=== PATIENT | male | born 1970 | race Caucasian/White ===

== ENCOUNTER 2017-01-22 19:25 | Emergency (ER) | payer BC, OTHER ==
--- NOTE | 2017-01-22 19:28 | PDOC ---
History of Present Illness - General History Source: Patient Exam Limitations: No Limitations - History of Present Illness Initial Comments: 01/22/17 20:09 The patient is a 46 year old male, with no significant past medical history, who presents today with an abscess on the left lateral calf that has become larger and increasingly warm and inflamed since yesterday. The pain is a constant throbbing, 6/10 in severity, and radiates down the ankle and up to the knee. The patient visited an urgent care yesterday and was prescribed Keflex and Bactrim, which he took two doses. The patient notes that he works in [employer], but denies any recent trauma or injury to the leg. Denies fever, chills, nausea, vomiting. Denies insect bites. Denies chest pain, SOB. Denies numbness or tingling in the lower extremities. Allergies: none reported Social Hx: no tobacco use, no alcohol use, no recreational drug use. Review of systems General: No fevers or chills, no weakness, no weight loss HEENT: No change in vision. No sore throat,. No ear pain CardioVascular: No chest pain or shortness of breath Respiratory:No cough, or wheezing. Gastrointestinal: no nausea, vomiting, diarrhea or constipation, No rectal bleeding Genitourinary: No dysuria, hematuria, or frequency Musculoskeletal: No joint or muscle pain or swelling Neurologic: No headache, vertigo, dizziness or loss of consciousness Psychiatric: nor depression Skin: + abscess on the left lateral calvillo that is painful warm to touch.No rashes or easy bruising Endocrine: no increased thirst or abnormal weight change Allergic: no skin or latex allergy All other systems reviewed and normal Physical Exam GENERAL: The patient is awake, alert, and fully oriented, in no acute distress. HEAD: Normal with no signs of trauma. EYES: Pupils equal, round and reactive to light, extraocular movements intact, sclera anicteric, conjunctiva clear. EXTREMITIES: Normal range of motion. NEUROLOGICAL: Normal speech, normal gait. PSYCH: Normal mood, normal affect. SKIN: On the mid left calf there is an area of induration with tenderness and erythema. There is increased warmth and erythema extending up the leg to approximately the popliteal fossa. There is no palpable collection. Neurovascular is intact. No rashes noted <Christy Lee - Last Filed: 01/22/17 20:08> - General History Source: Patient Exam Limitations: No Limitations - History of Present Illness Initial Comments: 01/22/17 21:02 A portion of this note was documented by scribe services under my direction. I have reviewed the details of the note, within reason, and agree with the documentation. The case summary and management plan written by me. Medical decision making This is a 46-year-old male who comes in complaining of left lower extremity pain swelling and infection. Patient had a small area of discomfort 1 days ago and was seen in an urgent care center and started on Keflex and Bactrim. She says that he's been taking them as prescribed. Patient said over the last 2 days his leg instead of getting better has gotten worse. Patient went back to the urgent care center and they told him to come to the emergency room. Patient has a area of induration that I put a needle into however there was no drainable collection so I did not incise and drain it. Patient was given a dose of IV vancomycin A CBC was sent and patient has a normal white count and no left shift. The rest of his lab work was otherwise unremarkable Patient is afebrile here in the emergency room I gave patient a local anesthetic prior to putting a needle into the area and the local anesthetic result patient's pain and discomfort. Discussed with discussed with patient the possibility of a observation admission just to make sure that his symptoms are getting better patient was adamant that he did not want to stay and said that he was refusing admission and would sign out if he needed to be admitted. Given patient's normal workup his resolution of his pain with only local anesthetic and the fact that he is afebrile here as well of having received a dose of IV antibiotics patient was discharged home without signing out AGAINST MEDICAL ADVICE but told to return if symptoms are not better in 48 hours or significantly worse in 24 hours. Patient was told to continue the antibiotics Keflex and Bactrim and to start hot soaks to the area 4 times a day. Patient has a primary care doctor he can follow-up with. \ <Kar Melissa I - Last Filed: 01/22/17 21:10> - General Chief Complaint: Wound Stated Complaint: LEFT LOWER LEG CELLULITIS Time Seen by Provider: 01/22/17 19:28 Past History <Christy Lee - Last Filed: 01/22/17 20:08> <Kar Melissa I - Last Filed: 01/22/17 21:10> - Past Medical History Allergies/Adverse Reactions: Allergies Allergy/AdvReac Type Severity Reaction Status Date / Time No Known Allergies Allergy Unverified 01/22/17 19:38 Home Medications: Ambulatory Orders Cephalexin [Keflex] 500 mg PO TID 01/22/17 Sulfamethoxazole/Trimethoprim [Bactrim Ds -] 1 tab PO BID 01/22/17 *Physical Exam - Vital Signs Last Vital Signs Temp Pulse Resp BP Pulse Ox 99.7 F H 87 16 128/79 99 01/22/17 19:26 01/22/17 19:26 01/22/17 19:26 01/22/17 19:26 01/22/17 19:26 <Christy Lee - Last Filed: 01/22/17 20:08> ED Treatment Course - LABORATORY CBC & Chemistry Diagram: 01/22/17 20:05 01/22/17 20:05 <Kar Melissa I - Last Filed: 01/22/17 21:10> *DC/Admit/Observation/Transfer - Attestations Scribe Attestion: 01/22/17 20:09 Documentation prepared by TIAGO Franco, acting as medical office coordinator for Kar Mleissa MD. <Christy Lee - Last Filed: 01/22/17 20:08> - Discharge Dispostion Admit: No <Kar Melissa I - Last Filed: 01/22/17 21:10> Diagnosis at time of Disposition: Cellulitis of left leg - Discharge Dispostion Condition at time of disposition: Stable - Patient Instructions Printed Discharge Instructions: DI for Cellulitis -- Adult Additional Instructions: Do hot soaks to the area as described by the physician do them for 20 minutes at a time 4 times a day for the next 3-4 days Continue the antibiotics as prescribed. Return to the emergency department immediately with ANY new, persistent or worsening symptoms. Continue any medications as previously prescribed by your physician. You should follow up with your primary doctor as soon as possible regarding today's emergency department visit. . Please make sure your doctor reviews the results of your emergency evaluation. Thank you for coming to the Emergency Department today for your care. It was a pleasure to see you today. Please note that your evaluation is INCOMPLETE until you follow-up with your doctor.
[2017-01-22 19:38] VITALS: BP 128/79; PULSE 87; TEMP 99.7; BMI 24.4
[2017-01-22 20:19] LABS: BASOPHIL 2.6 % (0-2.0); EOSINOPHIL 0.7 % (0-4.5); MCH 29.9 pg (25.7-33.7); MCHC 33.7 g/dl (32.0-35.9); MEAN CELL VOLUME 88.5 fl (80-96); MEAN PLT VOLUME 7.8 fl (7.5-11.1); NEUTROPHILS 75.6 % (42.8-82.8); PLATELET COUNT 295 K/MM3 (134-434); WHITE BLOOD COUNT 10.1 K/mm3 (4.0-10.8)
[2017-01-22] MEDS ORDERED: VANCOMYCIN 1,000 MG VIAL (RESTRICTED TO ID ONLY) ONE (20:20)
[2017-01-22] MEDS ORDERED: LIDOCAINE HCL 1%, 10 MG/ML (20ML VIAL) ONE (20:30)
[2017-01-22 20:33] LABS: ALBUMIN 4.2 g/dl (3.5-5.0); ALK PHOS 58 U/L (32-92); ANION GAP 9 (8-16); BILIRUBIN,TOTAL 1.4 mg/dl (0.2-1.0); CO2 24 mmol/L (22-28); CREATININE 1.3 mg/dl (0.6-1.3); GLUCOSE,RANDOM 102 mg/dl (74-106); SGOT/AST 21 U/L (10-42); SGPT/ALT 19 U/L (10-40); TOT PROT 6.9 g/dl (6.4-8.3)
[2017-01-22] MEDS ORDERED: VANCOMYCIN 1,000 MG in DEXTROSE 5%-WATER - 250 ML IVPB STA (20:41)
[2017-01-22] MEDS ORDERED: KETOROLAC TROMETHAMINE 30 MG/1 ML VIAL IVPUSH ONE (21:05)
[2017-01-22] MEDS ORDERED: KETOROLAC TROMETHAMINE 30 MG/1 ML VIAL ONE (21:09)
[2017-01-22] MEDS ORDERED: VANCOMYCIN 1,000 MG in DEXTROSE 5%-WATER - 250 ML IVPB SCH (22:00)
== END 2017-01-22 21:37 | disposition home or self-care (01) ==
LOC: FER 19:25
PROC: 3E03329 Introduction of Other Anti-infective into Peripheral Vein, Percutaneous Approach (ICD-10-PCS; principal; 2017-01-22)
PROC: 3E0333Z Introduction of Anti-inflammatory into Peripheral Vein, Percutaneous Approach (ICD-10-PCS; 2017-01-22)
DX: L03.116 Cellulitis of left lower limb (principal)
CPT/HCPCS: 36415; 80053; 85025; 87040; 99282-25

== ENCOUNTER 2017-01-24 18:51 | Emergency (ER) | payer BC ==
--- NOTE | 2017-01-24 18:59 | PDOC ---
History of Present Illness - General History Source: Patient Exam Limitations: No Limitations - History of Present Illness Initial Comments: 01/24/17 20:28 The patient is a 46 year old male, who was recently discharged on 01/22/17, 2 days ago, with an abscess on his left calf. He presents to the emergency department today for increased discomfort and pain. The patient states that the abscess remains painful and has not yet resolved. He states that he has been compliant with the antibiotics since being discharged. He denies fever, chills, nausea, vomiting. Denies abdominal pain. Denies chest pain, SOB. PAST MEDICAL HISTORY: no significant history PAST SURGICAL HISTORY: no significant history FAMILY HISTORY: no pertinent history SOCIAL HISTORY: Pt is employed. MEDICATIONS: reviewed ALLERGIES: As per nursing notes Review of systems General: No fevers or chills, no weakness, no weight loss HEENT: No change in vision. No sore throat, No ear pain CardioVascular: No chest pain or shortness of breath Respiratory:No cough, or wheezing. Gastrointestinal: no nausea, vomiting, diarrhea or constipation, No rectal bleeding Genitourinary: No dysuria, hematuria, or frequency Musculoskeletal: No joint or muscle pain or swelling Neurologic: No headache, vertigo, dizziness or loss of consciousness Psychiatric: nor depression Skin: +abscess on the left calf. No rashes or easy bruising Endocrine: no increased thirst or abnormal weight change Allergic: no skin or latex allergy All other systems reviewed and normal Physical Exam GENERAL: The patient is awake, alert, and fully oriented, in no acute distress. HEAD: Normal with no signs of trauma. EYES: Pupils equal, round and reactive to light, extraocular movements intact, sclera anicteric, conjunctiva clear. LEFT LOWER EXTREMITY: There is an area of swelling mid calf that is swollen and indurated 6cm x 6cm. There is tenderness on palpation of the area. There is a questionable palpable collection. There is some mild erythema to the area of swelling but it does not extend beyond the area of swelling. There is warmth associated with the area of swelling, but does not extend beyond the area of swelling. Neurovascular is intact. NEUROLOGICAL: Normal speech, normal gait. PSYCH: Normal mood, normal affect. SKIN: Warm, Dry, normal turgor, no rashes or lesions noted. <Christy Lee - Last Filed: 01/24/17 20:28> - General History Source: Patient Exam Limitations: No Limitations - History of Present Illness Initial Comments: A portion of this note was documented by scribe services under my direction. I have reviewed the details of the note, within reason, and agree with the documentation. The case summary and management plan written by me. 01/24/17 21:03 Ultrasound shows no DVT or no drainable collection. Assessment and plan: This is a 46-year-old male who comes in complaining of left leg pain and swelling. Patient was seen by me 2 days ago for a cellulitis of the leg secondary to a insect bite. The cellulitis had extended significantly beyond the area of bite and was tracking up the leg with some ascending lymphangitis. Patient had a workup including blood cultures and a CBC. The blood cultures at this point are showing no growth 3 days. The CBC was normal with a normal white count and no left shift. Patient denies any new fevers or new symptoms. Patient returns for reevaluation as he still is having some discomfort in the area of the probable bug bites. On my reexamination/reevaluation of the area the erythema is now limited to the area of the bug bite with some surrounding induration and erythema that is relatively mild. Patient still has 4 more days of Keflex and Bactrim. I did an ultrasound to rule out any DVT or drainable collection. The ultrasound was negative for DVT and there is no collection/abscess that was large enough to drain at this time. Patient will continue to take his medication and do hot soaks. Patient discharged home and was given Dr. Washington referral so that he will have some when he can follow-up with if anything changes 01/24/17 22:16 Referring Physician: Kar Melissa Patient Name: Hammad Young THIS IS A PRELIMINARY REPORT FROM [facility] EXAM: U/S, LOWER EXTREMITY VENOUS DOPPLER - Left INDICATION: Pain and swelling COMPARISON: NONE IMAGES: 22 EXAM DATE AND TIME: 2017-01-24 19:34:00.0 IMPRESSION: Negative for Left lower extremity DVT. THIS DOCUMENT HAS BEEN ELECTRONICALLY SIGNED Ed Christensen D.O. 01/24/2017 21:51 EST M.D. Please call [facility] [phone] with questions. End of Report Content Referring Physician: Kar Melissa Patient Name: Hammad Young THIS IS A PRELIMINARY REPORT FROM [facility] EXAM: Ultrasound soft tissues nonvascular, left IMAGES: 11 EXAM DATE AND TIME: 2017-01-24 20:26:14.0 REASON FOR EXAM: Left calf pain, swelling COMPARISON: None. FINDINGS: Small amorphous collection at palpable area in left calf, collection measures 1.2 x 0.4 x 0.6 cm. Collectioncentered at depth about 5 mm deep to skin surface. Differential includes phlegmon/early abscess, hematoma or muscle injury. THIS DOCUMENT HAS BEEN ELECTRONICALLY SIGNED Ed Christensen D.O. 01/24/2017 21:49 ABELARDO Jasso Please call [facility]reader [phone] with questions. End of Report Content <Kar Melissa I - Last Filed: 01/24/17 22:18> - General Chief Complaint: Revisit,Wound Recheck Stated Complaint: LEFT CALF WOUND Time Seen by Provider: 01/24/17 18:58 Past History <Christy Lee - Last Filed: 01/24/17 20:28> - Psycho/Social/Smoking Cessation Hx Anxiety: No Suicidal Ideation: No Smoking History: Never smoked Hx Alcohol Use: No Drug/Substance Use Hx: No Substance Use Type: None <Kar Melissa I - Last Filed: 01/24/17 22:18> - Past Medical History Allergies/Adverse Reactions: Allergies Allergy/AdvReac Type Severity Reaction Status Date / Time No Known Allergies Allergy Verified 01/24/17 18:52 Home Medications: Ambulatory Orders Cephalexin [Keflex] 500 mg PO TID 01/22/17 Sulfamethoxazole/Trimethoprim [Bactrim Ds -] 1 tab PO BID 01/22/17 *Physical Exam - Vital Signs Last Vital Signs Temp Pulse Resp BP Pulse Ox 98.7 F 78 20 112/75 97 01/24/17 18:52 01/24/17 18:52 01/24/17 18:52 01/24/17 18:52 01/24/17 18:52 <Christy Lee - Last Filed: 01/24/17 20:28> *DC/Admit/Observation/Transfer <Christy Lee - Last Filed: 01/24/17 20:28> <Kar Melissa I - Last Filed: 01/24/17 22:18> Diagnosis at time of Disposition: Cellulitis of left leg - Discharge Dispostion Disposition: HOME Condition at time of disposition: Improved - Patient Instructions Additional Instructions: The ultrasound was negative for blood clot or any abscess or collection that is large enough to drain. Continue taking the antibiotics as prescribed both Keflex and the Bactrim until you've completed a course of them. Tylenol or Motrin as needed for pain. Continue the hot soaks to the area. I am giving U an orthopedist to follow-up with call Dr. Washington at [phone] on Thursday morning for an appointment Return to the emergency department immediately with ANY new, persistent or worsening symptoms. Continue any medications as previously prescribed by your physician. You should follow up with your primary doctor as soon as possible regarding today's emergency department visit. . Please make sure your doctor reviews the results of your emergency evaluation. Thank you for coming to the Emergency Department today for your care. It was a pleasure to see you today. Please note that your evaluation is INCOMPLETE until you follow-up with your doctor.
[2017-01-24 19:03] VITALS: BP 112/75; PULSE 78; TEMP 98.7; BMI 24.3
== END 2017-01-24 21:13 | disposition home or self-care (01) ==
LOC: FER 18:51
DX: L03.116 Cellulitis of left lower limb (principal)
CPT/HCPCS: 76882; 93971-TC; 99281-25

== ENCOUNTER 2018-08-01 16:21 | Emergency (ER) | payer BC ==
[2018-08-01] MEDS ORDERED: KETOROLAC TROMETHAMINE 30 MG/1 ML VIAL ONE (16:29)
[2018-08-01 16:33] VITALS: BP 126/58; PULSE 78; TEMP 98.1; BMI 22.8
[2018-08-01] MEDS ORDERED: KETOROLAC TROMETHAMINE 30 MG/1 ML VIAL IVPUSH ONE (16:34)
[2018-08-01] MEDS ORDERED: SODIUM CHLORIDE 0.9% 1000 ML INFUS.BAG IV ONE ×2 (16:39→17:20)
--- NOTE | 2018-08-01 16:39 | PDOC ---
History of Present Illness - General Chief Complaint: Pain, Acute Stated Complaint: SEVERE ABDOMINAL PAIN Time Seen by Provider: 08/01/18 16:26 History Source: Patient Exam Limitations: No Limitations - History of Present Illness Initial Comments: 08/01/18 16:35 The patient is a 48M with no PMH who presents with acute onset R flank pain. The patient describes a sudden onset R flank pain which is sharp and radiating to his R abdomen/side associated with nausea (without vomiting) without exacerbating or alleviating factors. He denies fever, chills, CP, SOB, dysuria, hematuria, hematochezia, and melena. Past History - Past Medical History Allergies/Adverse Reactions: Allergies Allergy/AdvReac Type Severity Reaction Status Date / Time No Known Allergies Allergy Verified 08/01/18 16:29 Home Medications: Ambulatory Orders Naproxen 500 mg PO BID #14 tablet 08/01/18 Oxycodone HCl/Acetaminophen [Percocet 5-325 mg Tablet] 1 tab PO TID PRN #20 tablet MDD 3 tabs 08/01/18 Tamsulosin HCl [Flomax] 0.4 mg PO DAILY #14 capsule 08/01/18 COPD: No - Suicide/Smoking/Psychosocial Hx Smoking History: Never smoked Have you smoked in the past 12 months: No Information on smoking cessation initiated: No Hx Alcohol Use: No Drug/Substance Use Hx: No Substance Use Type: None Review of Systems - Review of Systems Able to Perform ROS?: Yes Comments:: 08/01/18 16:36 GENERAL/CONSTITUTIONAL: No fever or chills. No weakness. HEAD, EYES, EARS, NOSE AND THROAT: No change in vision. No ear pain or discharge. No sore throat. CARDIOVASCULAR: No chest pain, palpitations, or lightheadedness. RESPIRATORY: No cough, wheezing, shortness of breath, or hemoptysis. GASTROINTESTINAL: Positive for nausea. No vomiting, diarrhea, constipation, or abdominal pain. GENITOURINARY: Positive for R flank pain. No dysuria, frequency, hematuria, or change in urination. MUSCULOSKELETAL: No joint or muscle swelling or pain. No neck or back pain. SKIN: No rash or lesions. NEUROLOGIC: No headache, numbness, tingling, focal weakness, loss of consciousness, or change in strength/sensation. Is the patient limited Italian proficient: No *Physical Exam - Vital Signs Last Vital Signs Temp Pulse Resp BP Pulse Ox 98.1 F 78 20 126/58 L 100 08/01/18 16:29 08/01/18 16:29 08/01/18 16:29 08/01/18 16:29 08/01/18 16:29 - Physical Exam Comments: 08/01/18 16:38 GENERAL: Well developed, well nourished. Awake and alert. In mild distress. HEENT: Normocephalic, atraumatic. Hearing grossly normal. Moist mucous membranes. PERRLA, EOMI. No conjunctival pallor. Sclera are non-icteric. NECK: Supple. Full ROM. No JVD. CARDIOVASCULAR: Regular rate and rhythm. No murmurs, rubs, or gallops. PULMONARY: No evidence of respiratory distress. Lungs clear to auscultation bilaterally. No wheezing, rales or rhonchi. ABDOMINAL: Soft. Non-tender. Non-distended. No rebound or guarding. GENITOURINARY: R CVA tenderness. MUSCULOSKELETAL: Normal range of motion at all joints. No bony deformities or tenderness. EXTREMITIES: No cyanosis. No clubbing. No edema. No calf tenderness or swelling. SKIN: Warm and dry. Normal capillary refill. No rashes. No jaundice. NEUROLOGICAL: Alert, awake, appropriate. Cranial nerves 2-12 grossly intact. Normal speech. PSYCHIATRIC: Cooperative. Good eye contact. Appropriate mood and affect. Moderate Sedation - Procedure Monitoring Vital Signs: Procedure Monitoring Vital Signs Temperature 98.1 F 08/01/18 16:29 Pulse Rate 78 08/01/18 16:29 Respiratory Rate 20 08/01/18 16:29 Blood Pressure 126/58 L 08/01/18 16:29 O2 Sat by Pulse Oximetry (%) 100 08/01/18 16:29 ED Treatment Course - LABORATORY CBC & Chemistry Diagram: 08/01/18 16:40 08/01/18 16:40 - RADIOLOGY Radiology Studies Ordered: Category Date Time Status ABDOMEN & PELVIS CT W/O CONTR [CT] Stat CT Scan 08/01/18 16:33 Ordered Medical Decision Making - Medical Decision Making 08/01/18 16:40 The patient is a 48M with no PMH who presents to the ER with sudden onset R flank pain concerning for nepholithiasis, septic stone, pyelo, UTI, cholecystitis. Latter is unlikely as pt had normal abdominal exam with a negative Milligan's. No concern for shingles as pt is not immunocompromised and has no rash. 08/01/18 20:23 CT shows 0.3 cm R sided stone obstructing the proximal 1/3 of R ureter and 0.2 L sided non-obstructing stone. Giving flomax and percocet. Pending UA. 08/01/18 20:39 Will d/c with urology f/u. *DC/Admit/Observation/Transfer Diagnosis at time of Disposition: Nephrolithiasis - Discharge Dispostion Disposition: HOME Condition at time of disposition: Stable Decision to Admit order: No - Prescriptions Prescriptions: Naproxen 500 mg PO BID #14 tablet Oxycodone HCl/Acetaminophen [Percocet 5-325 mg Tablet] 1 tab PO TID PRN #20 tablet MDD 3 tabs PRN Reason: Pain Tamsulosin HCl [Flomax] 0.4 mg PO DAILY #14 capsule - Referrals Referrals: Andres Carrasco MD., MD [Staff Physician] - - Patient Instructions Printed Discharge Instructions: Kidney Stones -- Adult Additional Instructions: Please follow up with your primary care physician in 2-3 days. Please return to the ER if you have any signs or symptoms of chest pain, shortness of breath, uncontrollable fever, chills, nausea, vomiting, numbness, tingling, or weakness in any part of your body, changes in vision, or slurred speech. Please take your medications as prescribed. Please return to the ER if symptoms persist, worsen, or new symptoms arise. - Post Discharge Activity
[2018-08-01 16:48] LABS: BASO % 0.2 % (0-2.0); EOS % 0.4 % (0-4.5); HEMOGLOBIN 14.8 GM/dL (11.7-16.9); LYMPH % 7.9 % (8-40); MCH 30.9 pg (25.7-33.7); MCHC 35.3 g/dl (32.0-35.9); MEAN CELL VOLUME 87.5 fl (80-96); MEAN PLT VOLUME 7.6 fl (7.5-11.1); MONO % 6.2 % (3.8-10.2); NEUT % 85.3 % (42.8-82.8); PLATELET COUNT 303 K/MM3 (134-434); RDW 13.5 % (11.9-15.9); WHITE BLOOD COUNT 11.7 K/mm3 (4.0-10.0)
[2018-08-01] MEDS ORDERED: morphine SULFATE 4 MG/ML VIAL ONE (16:57)
[2018-08-01] MEDS ORDERED: morphine CARPU-JECT 4 MG/1 ML DISP.SYRIN IVPUSH ONE (16:57)
[2018-08-01 17:02] LABS: INR 1.18 (0.83-1.09)
[2018-08-01 17:10] LABS: ALBUMIN 4.2 g/dl (3.4-5.0); ALK PHOS 68 U/L (45-117); ANION GAP 10 MMOL/L (8-16); BILIRUBIN,TOTAL 1.1 mg/dL (0.2-1); BLOOD UREA NITROGEN 20 mg/dL (7-18); CALCIUM 9.3 mg/dL (8.5-10.1); CHLORIDE 104 mmol/L (98-107); CO2 24 mmol/L (21-32); CREATININE 1.4 mg/dL (0.55-1.3); GLUCOSE,RANDOM 112 mg/dL (74-106); LIPASE 146 U/L (73-393); POTASSIUM 3.6 mmol/L (3.5-5.1); SGOT/AST 24 U/L (15-37); SGPT/ALT 37 U/L (13-61); SODIUM 137 mmol/L (136-145); TOT PROT 7.5 g/dl (6.4-8.2)
[2018-08-01] MEDS ORDERED: ONDANSETRON 4 MG/2 ML VIAL ONE (17:17)
[2018-08-01] MEDS ORDERED: ONDANSETRON 4 MG/2 ML VIAL IVPUSH ONE (17:17)
[2018-08-01] MEDS ORDERED: ACETAMINOPHEN 1000 MG/100 ML VIAL (NON FORMULARY) IVPB ONE (17:33)
[2018-08-01] MEDS ORDERED: ACETAMINOPHEN INJECTION 100 ML IVPB ONE (17:46)
--- NOTE | 2018-08-01 18:04 | PDOC ---
Attending Attestation - Resident Resident Name: Hammad Harris - ED Attending Attestation I have performed the following: I have examined & evaluated the patient, The case was reviewed & discussed with the resident, I agree w/resident's findings & plan, Exceptions are as noted - HPI HPI: 08/01/18 18:18 The patient is a 48 year old male with no significant past medical history who presents to the emergency department with right sided flank pain for 1 day. He describes his pain as sharp with radiation to his groin. The patient denies any similar episode like this in the past. He denies any fever, chills, nausea, vomiting, diarrhea, constipation or urinary symptoms. He denies any chest pain, shortness of breath, headache or dizziness. Denies abdominal pain or scrotal pain. The patient denies any other complaints. - Physicial Exam PE: 08/01/18 18:19 GENERAL: Awake, alert, and fully oriented, in no acute distress. HEAD: No signs of trauma EYES: PERRLA, EOMI, sclera anicteric, conjunctiva clear ENT: Auricles normal inspection, hearing grossly normal, nares patent, oropharynx clear without exudates. Moist mucosa NECK: Nontender, no stepoffs, Normal ROM, supple, no lymphadenopathy, JVD, or masses LUNGS: Breath sounds equal, clear to auscultation bilaterally. No wheezes, and no crackles HEART: Regular rate and rhythm, normal S1 and S2, no murmurs, rubs or gallops ABDOMEN: Soft, nontender, normoactive bowel sounds. No guarding, no rebound. No masses BACK: + R CVAT EXTREMITIES: Normal range of motion, no edema. No clubbing or cyanosis. No cords, erythema, or tenderness NEUROLOGICAL: Cranial nerves II through XII intact. 5/5 strength and sensation in all extremities, Normal speech, normal gait, normal cerebellar function SKIN: Warm, Dry, normal turgor, no rashes or lesions noted. - Medical Decision Making 08/01/18 18:20 48 M with R flank pain x 1 day. Suspect kidney stone. Will r/o pyelo. No abdominal tenderness, negative rocha's, making Jillian less likely. - Labs, UA - CTAP noncon - IVF, pain control 08/01/18 20:[address] shows 3mm R ureteral stone Pt reassessed - pain is well controlled Pt is well appearing, with normal vitals. Clinically stable for DC at this time. I discussed the physical exam findings, ancillary test results and final diagnoses with the patient. I answered all of the patient's questions. The patient was satisfied with the care received and felt comfortable with the discharge plan and treatment plan. The patient agrees to follow up with the primary care physician within 24-72 hours.
[2018-08-01] MEDS ORDERED: TAMSULOSIN HCL 0.4 MG CAP PO ONE (20:14)
[2018-08-01] MEDS ORDERED: TAMSULOSIN HCL 0.4 MG CAP ONE (20:21)
[2018-08-01 20:28] LABS: URINE APPEARANCE SLCLOUDY; URINE BILIRUBIN NEGATIVE (<2.0 mg/dL); URINE COLOR LTYELLOW; URINE GLUCOSE (UA) NEGATIVE (NEGATIVE); URINE KETONE 1+ (NEGATIVE); URINE LEUK ESTERASE NEGATIVE (NEGATIVE); URINE NITRITE NEGATIVE (NEGATIVE); URINE PROTEIN NEGATIVE (NEGATIVE); URINE UROBILINOGEN NEGATIVE mg/dL (0.2-1.0)
[2018-08-01 20:37] LABS: URINE MUCUS RARE
--- NOTE | 2018-08-02 10:05 | EKG ---
Test Reason : Blood Pressure : / mmHG Vent. Rate : 074 BPM Atrial Rate : 074 BPM P-R Int : 140 ms QRS Dur : 086 ms QT Int : 406 ms P-R-T Axes : 053 060 023 degrees QTc Int : 450 ms SINUS RHYTHM WITH PREMATURE SUPRAVENTRICULAR COMPLEXES OTHERWISE NORMAL ECG NO PREVIOUS ECGS AVAILABLE Confirmed by POPPY TOBIN, MADHAVI ([id number]) on 08/02/2018 10:05:26 AM Referred By: Confirmed By:MADHAVI MCWILLIAMS MD
== END 2018-08-01 20:49 | disposition home or self-care (01) ==
LOC: JER 16:21
PROC: 3E033GC Introduction of Other Therapeutic Substance into Peripheral Vein, Percutaneous Approach (ICD-10-PCS; principal; 2018-08-01)
PROC: 3E0333Z Introduction of Anti-inflammatory into Peripheral Vein, Percutaneous Approach (ICD-10-PCS; 2018-08-01)
PROC: 3E033NZ Introduction of Analgesics, Hypnotics, Sedatives into Peripheral Vein, Percutaneous Approach (ICD-10-PCS; 2018-08-01)
PROC: 3E033NZ Introduction of Analgesics, Hypnotics, Sedatives into Peripheral Vein, Percutaneous Approach (ICD-10-PCS; 2018-08-01)
DX: N20.0 Calculus of kidney (principal)
CPT/HCPCS: 36415; 74176-TC; 80053; 81003; 81015; 83690; 85025; 85610; 86850; 86900; 86901; 87086; 93005; 93010; 99283-25; J0131; J7030

== ENCOUNTER 2022-07-15 04:14 | Day surgery (SDC) | payer OTHER ==
[2022-07-14 08:48] VITALS: BMI 24.3
[2022-07-15] MEDS ORDERED: ceFAZolin SODIUM 1 GM VIAL IVPB ONE (11:35)
[2022-07-15] MEDS ORDERED: PROPOFOL 40 ML ONE (11:36)
[2022-07-15] MEDS ORDERED: SUCCINYLCHOLINE CHLORIDE 200 MG/10 ML SYRINGE ONE (11:36)
[2022-07-15] MEDS ORDERED: MIDAZOLAM HCL 2 MG/2 ML SINGLE DOSE VIAL ONE (11:36)
[2022-07-15] MEDS ORDERED: ceFAZolin SODIUM 1 GM VIAL ONE ×2 (11:45)
[2022-07-15] MEDS ORDERED: ELECTROLYTE-148 SOLN 1,000 ML IV SCH (11:45)
[2022-07-15] MEDS ORDERED: DEXAMETHASONE SOD PHOSPHATE 4 MG/1 ML VIAL ONE (12:13)
[2022-07-15] MEDS ORDERED: ONDANSETRON 4 MG/2 ML VIAL ONE (12:13)
[2022-07-15] MEDS ORDERED: KETOROLAC TROMETHAMINE 30 MG/1 ML VIAL ONE (12:13)
[2022-07-15] MEDS ORDERED: ONDANSETRON 4 MG/2 ML VIAL IVPUSH PRN (13:02)
[2022-07-15] MEDS ORDERED: oxyCODONE HCL 5 MG TABLET PO PRN (13:02)
[2022-07-15] MEDS ORDERED: LACTATED RINGERS SOLUTION 1,000 ML IV SCH (13:15)
[2022-07-15] MEDS ORDERED: oxyCODONE HCL 5 MG TABLET ONE (14:06)
[2022-07-15 14:13] VITALS: RESP 18
[2022-07-15 15:26] VITALS: BP 141/83; PULSE 80; TEMP 98.7
== END 2022-07-15 14:45 | disposition home or self-care (01) ==
LOC: JASU-SURG 04:14
PROVIDERS: ATTEND Urology
PROC: 0TF68ZZ Fragmentation in Right Ureter, Via Natural or Artificial Opening Endoscopic (ICD-10-PCS; principal; 2022-07-15 10:30)
PROC: 0T768DZ Dilation of Right Ureter with Intraluminal Device, Via Natural or Artificial Opening Endoscopic (ICD-10-PCS; 2022-07-15 10:30)
DX: N20.1 Calculus of ureter (principal); N23 Unspecified renal colic
CPT/HCPCS: 94760; C2617

== ENCOUNTER 2022-10-02 20:05 | Emergency (ER) | payer OTHER ==
[2022-10-02 20:11] VITALS: BP 131/86; PULSE 55; RESP 16; TEMP 98.2
[2022-10-02] MEDS ORDERED: KETOROLAC TROMETHAMINE 30 MG/1 ML VIAL IVPUSH ONE (20:53)
[2022-10-02] MEDS ORDERED: KETOROLAC TROMETHAMINE 30 MG/1 ML VIAL ONE (21:04)
[2022-10-02 21:29] LABS: BASO % 0.2 % (0-2.0); EOS % 1.2 % (0-4.5); HEMATOCRIT 38.2 % (35.4-49); LYMPH % 8.7 % (8-40); MCH 29.9 pg (25.7-33.7); MCHC 34.2 g/dl (32.0-35.9); MEAN CELL VOLUME 87.6 fl (80-96); MEAN PLT VOLUME 7.2 fl (7.5-11.1); MONO % 5.7 % (3.8-10.2); NEUT % 84.2 % (42.8-82.8); PLATELET COUNT 315 10^3/uL (134-434); RBC 4.35 M/mm3 (4.00-5.60); RDW 14.3 % (11.9-15.9); WHITE BLOOD COUNT 11.1 K/mm3 (4.0-10.0)
[2022-10-02] MEDS ORDERED: morphine CARPU-JECT 4 MG/1 ML DISP.SYRIN IVPUSH ONE (21:31)
[2022-10-02] MEDS ORDERED: morphine SULFATE 4 MG/ML VIAL ONE (21:31)
[2022-10-02 21:46] LABS: URINE APPEARANCE CLEAR; URINE BILIRUBIN NEGATIVE (NEGATIVE); URINE COLOR YELLOW; URINE GLUCOSE (UA) NEGATIVE (NEGATIVE); URINE KETONE TRACE (NEGATIVE); URINE LEUK ESTERASE NEGATIVE (NEGATIVE); URINE NITRITE NEGATIVE (NEGATIVE); URINE PROTEIN TRACE (NEGATIVE); URINE UROBILINOGEN 0.2 mg/dL (0.2-1.0)
[2022-10-02] MEDS ORDERED: SODIUM CHLORIDE 0.9% 500 ML INFUS.BAG IV ONE (21:48)
[2022-10-02] MEDS ORDERED: ONDANSETRON 4 MG/2 ML VIAL IVPUSH ONE (21:48)
[2022-10-02 21:50] LABS: CALCIUM 8.9 mg/dL (8.5-10.1)
[2022-10-02 21:51] LABS: ALBUMIN 3.9 g/dl (3.4-5.0); BLOOD UREA NITROGEN 25.7 mg/dL (7-18)
[2022-10-02 21:54] LABS: CREATININE 1.4 mg/dL (0.55-1.3)
[2022-10-02 21:55] LABS: BILIRUBIN,TOTAL 0.6 mg/dL (0.2-1)
[2022-10-02] MEDS ORDERED: ONDANSETRON 4 MG/2 ML VIAL ONE (22:35)
[2022-10-02] MEDS ORDERED: TAMSULOSIN HCL 0.4 MG CAP PO ONE (23:53)
[2022-10-03] MEDS ORDERED: TAMSULOSIN HCL 0.4 MG CAP ONE (00:24)
== END 2022-10-03 01:00 | disposition left against medical advice (07) ==
LOC: JER 20:05
PROC: 3E033GC Introduction of Other Therapeutic Substance into Peripheral Vein, Percutaneous Approach (ICD-10-PCS; principal; 2022-10-02)
DX: N20.0 Calculus of kidney (principal); R10.9 Unspecified abdominal pain; R11.2 Nausea with vomiting, unspecified
CPT/HCPCS: 36415; 74176-TC; 80053; 81003; 85025; 87086; 99284-25

== ENCOUNTER 2023-03-24 20:47 | Emergency (ER) | payer OTHER ==
[2023-03-24 21:11] VITALS: BMI 22.7
[2023-03-24] MEDS ORDERED: ACETAMINOPHEN 1000 MG/100 ML BAG IVPB ONE (21:19)
[2023-03-24] MEDS ORDERED: ONDANSETRON 4 MG/2 ML VIAL IVPUSH ONE (21:19)
[2023-03-24] MEDS ORDERED: SODIUM CHLORIDE 0.9% 500 ML INFUS.BAG IV ONE (21:19)
[2023-03-24] MEDS ORDERED: ACETAMINOPHEN INJECTION 100 ML IVPB ONE (21:22)
[2023-03-24] MEDS ORDERED: ONDANSETRON 4 MG/2 ML VIAL ONE (21:22)
[2023-03-24] MEDS ORDERED: LIDOCAINE 5% TOPICAL PATCH TP ONE (21:31)
[2023-03-24] MEDS ORDERED: LIDOCAINE 4% PATCH TP ONE (21:37)
[2023-03-24 21:59] LABS: BASO % 0.6 % (0-2.0); EOS % 1.4 % (0-4.5); HEMATOCRIT 40.6 % (35.4-49); HEMOGLOBIN 14.4 GM/dL (11.7-16.9); LYMPH % 16.3 % (8-40); MCH 30.7 pg (25.7-33.7); MCHC 35.6 g/dl (32.0-35.9); MEAN CELL VOLUME 86.2 fl (80-96); MEAN PLT VOLUME 7.1 fl (7.5-11.1); MONO % 7.1 % (3.8-10.2); NEUT % 74.6 % (42.8-82.8); PLATELET COUNT 315 10^3/uL (134-434); RBC 4.71 M/mm3 (4.00-5.60); RDW 13.5 % (11.9-15.9); WHITE BLOOD COUNT 8.2 K/mm3 (4.0-10.0)
[2023-03-24] MEDS ORDERED: LIDOCAINE PATCH REMOVAL MC ONE (22:00)
[2023-03-24 22:19] LABS: INR 1.19 (0.83-1.09); PROTHROMBIN TIME (PATIENT) 13.8 SEC (9.7-13.0)
[2023-03-24 22:20] LABS: POTASSIUM 3.3 mmol/L (3.5-5.1)
[2023-03-24 22:21] LABS: ACTIVATED PTT 27.8 SECONDS (25.2-36.5)
[2023-03-24 22:23] LABS: BLOOD UREA NITROGEN 25.7 mg/dL (7-18); CALCIUM 9.1 mg/dL (8.5-10.1)
[2023-03-24 22:24] LABS: ALBUMIN 4.2 g/dl (3.4-5.0)
[2023-03-24 22:27] LABS: CREATININE 1.6 mg/dL (0.55-1.3)
[2023-03-24 22:28] LABS: TOT PROT 7.4 g/dl (6.4-8.2)
[2023-03-24] MEDS ORDERED: morphine CARPU-JECT 4 MG/1 ML DISP.SYRIN IVPUSH ONE (22:30)
[2023-03-24] MEDS ORDERED: morphine SULFATE 4 MG/ML VIAL ONE (22:36)
[2023-03-25 00:06] LABS: EPI CELLS 14 /uL (0-25.1); HYALINE CASTS 1 /uL (0-3.1); URINE APPEARANCE CLOUDY; URINE BACTERIA 4 /uL (0-1359); URINE BILIRUBIN NEGATIVE (NEGATIVE); URINE COLOR YELLOW; URINE GLUCOSE (UA) NEGATIVE (NEGATIVE); URINE KETONE TRACE (NEGATIVE); URINE LEUK ESTERASE NEGATIVE (NEGATIVE); URINE NITRITE NEGATIVE (NEGATIVE); URINE PROTEIN NEGATIVE (NEGATIVE); URINE UROBILINOGEN 0.2 mg/dL (0.2-1.0); URINE WBC 6 /uL (0-25.8)
[2023-03-25] MEDS ORDERED: SODIUM CHLORIDE 0.9% 500 ML INFUS.BAG IV ONE (01:03)
[2023-03-25 01:04] VITALS: BP 129/75; PULSE 64; RESP 18; TEMP 98
[2023-03-25 02:46] LABS: URINE RBC 224.1 /uL (0-23.9); YEAST NONE SEEN (NEGATIVE)
[2023-03-25 03:08] LABS: POTASSIUM 3.8 mmol/L (3.5-5.1)
[2023-03-25 03:10] LABS: BLOOD UREA NITROGEN 24.9 mg/dL (7-18); CALCIUM 8.2 mg/dL (8.5-10.1)
[2023-03-25 03:14] LABS: CREATININE 1.1 mg/dL (0.55-1.3)
== END 2023-03-25 03:27 | disposition home or self-care (01) ==
LOC: JER 20:47
PROC: 3E033NZ Introduction of Analgesics, Hypnotics, Sedatives into Peripheral Vein, Percutaneous Approach (ICD-10-PCS; principal; 2023-03-24)
PROC: 3E033GC Introduction of Other Therapeutic Substance into Peripheral Vein, Percutaneous Approach (ICD-10-PCS; 2023-03-24)
PROC: 3E033GC Introduction of Other Therapeutic Substance into Peripheral Vein, Percutaneous Approach (ICD-10-PCS; 2023-03-24)
DX: K92.0 Hematemesis (principal); M54.50 Low back pain, unspecified; R10.31 Right lower quadrant pain; N20.2 Calculus of kidney with calculus of ureter; N23 Unspecified renal colic; R11.0 Nausea
CPT/HCPCS: 36415; 71046-TC-FY; 74176-TC; 80048; 80053; 81003; 82272; 83690; 84484; 85025; 85610; 85730; 86850; 86900; 86901; 93005; 93010; 99285-25

== ENCOUNTER 2023-05-05 04:14 | Day surgery (SDC) | payer OTHER ==
[2023-05-01 14:49] VITALS: BMI 23.5
[2023-05-05 09:49] VITALS: RESP 18
[2023-05-05] MEDS ORDERED: FENTANYL CITRATE/PF 50 MCG/ML VIAL ONE ×2 (12:14→12:22)
[2023-05-05] MEDS ORDERED: ONDANSETRON 4 MG/2 ML VIAL ONE (12:15)
[2023-05-05] MEDS ORDERED: MIDAZOLAM HCL 2 MG/2 ML SINGLE DOSE VIAL ONE (12:15)
[2023-05-05] MEDS ORDERED: KETOROLAC TROMETHAMINE 30 MG/1 ML VIAL ONE (12:15)
[2023-05-05] MEDS ORDERED: ceFAZolin SODIUM 1 GM VIAL ONE (12:20)
[2023-05-05] MEDS ORDERED: ceFAZolin SODIUM 1 GM VIAL IVPB ONE (12:21)
[2023-05-05] MEDS ORDERED: ELECTROLYTE-148 SOLN 1,000 ML IV SCH (12:45)
[2023-05-05 14:01] VITALS: BP 119/79; PULSE 60; TEMP 98
== END 2023-05-05 14:10 | disposition home or self-care (01) ==
LOC: JASU-SURG 04:14
PROVIDERS: ATTEND Urology
PROC: 0TF3XZZ Fragmentation in Right Kidney Pelvis, External Approach (ICD-10-PCS; principal; 2023-05-05 12:15)
DX: N20.0 Calculus of kidney (principal)

== ENCOUNTER 2024-06-08 04:03 | Day surgery (SDC) | payer OTHER ==
[2024-06-07 08:54] VITALS: BMI 23.5
[2024-06-08 13:02] VITALS: RESP 20
[2024-06-08] MEDS ORDERED: ONDANSETRON 4 MG/2 ML VIAL IVPUSH PRN (15:20)
[2024-06-08] MEDS ORDERED: oxyCODONE HCL 5 MG TABLET PO PRN (15:20)
[2024-06-08] MEDS ORDERED: ACETAMINOPHEN 500 MG TABLET (FP) PO PRN (15:20)
[2024-06-08] MEDS ORDERED: LACTATED RINGERS SOLUTION 1,000 ML IV SCH (15:30)
[2024-06-08] MEDS ORDERED: ELECTROLYTE-148 SOLN 1,000 ML IV SCH (16:00)
[2024-06-08 16:29] VITALS: BP 120/72; PULSE 60; TEMP 97.3
== END 2024-06-08 16:47 | disposition home or self-care (01) ==
LOC: JASU-SURG 04:03
PROVIDERS: ATTEND Urology
PROC: 0TF4XZZ Fragmentation in Left Kidney Pelvis, External Approach (ICD-10-PCS; principal; 2024-06-08 12:45)
DX: N20.0 Calculus of kidney (principal)

== ENCOUNTER 2024-09-01 11:25 | Day surgery (SDC) | payer OTHER ==
[2024-09-01 12:58] VITALS: BMI 23.5
[2024-09-01] MEDS ORDERED: LIDOCAINE HCL/PF 2% SDV 5ML VIAL ONE (14:50)
[2024-09-01] MEDS ORDERED: PROPOFOL 20 ML ONE (14:50)
[2024-09-01] MEDS ORDERED: MIDAZOLAM HCL 2 MG/2 ML SINGLE DOSE VIAL ONE (14:50)
[2024-09-01] MEDS ORDERED: ceFAZolin SODIUM 1 GM VIAL ONE (15:50)
[2024-09-01] MEDS ORDERED: ONDANSETRON 4 MG/2 ML VIAL ONE (15:50)
[2024-09-01] MEDS ORDERED: KETOROLAC TROMETHAMINE 30 MG/1 ML VIAL ONE (15:50)
[2024-09-01] MEDS ORDERED: DEXAMETHASONE SOD PHOSPHATE 4 MG/1 ML VIAL ONE (15:50)
[2024-09-01] MEDS: ceFAZolin SODIUM 1 GM VIAL IVPB ONE (15:53)
[2024-09-01] MEDS ORDERED: ELECTROLYTE-148 SOLN 1,000 ML IV SCH (16:00)
[2024-09-01] MEDS ORDERED: ONDANSETRON 4 MG/2 ML VIAL IVPUSH PRN (16:35)
[2024-09-01] MEDS ORDERED: oxyCODONE HCL 5 MG TABLET PO PRN ×2 (16:35)
[2024-09-01] MEDS ORDERED: PROMETHAZINE HCL 25 MG/1 ML VIAL IVPB PRN (16:35)
[2024-09-01] MEDS ORDERED: ACETAMINOPHEN INJECTION 100 ML ONE (16:54)
[2024-09-01] MEDS: LACTATED RINGERS SOLUTION 1,000 ML IV SCH (16:57)
[2024-09-01] MEDS: ACETAMINOPHEN 1000 MG/100 ML BAG IVPB ONE (16:58)
[2024-09-01 17:40] VITALS: BP 120/78; PULSE 65; RESP 18; TEMP 97.1
== END 2024-09-01 18:09 | disposition home or self-care (01) ==
LOC: JASU-SURG 11:25
PROVIDERS: ATTEND Urology
PROC: 0T768DZ Dilation of Right Ureter with Intraluminal Device, Via Natural or Artificial Opening Endoscopic (ICD-10-PCS; 2024-09-01)
PROC: 0TF38ZZ Fragmentation in Right Kidney Pelvis, Via Natural or Artificial Opening Endoscopic (ICD-10-PCS; principal; 2024-09-01 15:00)
DX: N20.0 Calculus of kidney (principal)
CPT/HCPCS: 76000-TC-FY; 94760; J0131